=== PATIENT | female | born 1990 | race African-American/Black ===

== ENCOUNTER 2017-11-12 17:28 | Emergency (ER) | payer OTHER ==
[2017-11-12 17:54] VITALS: BP 160/100
[2017-11-12] MEDS ORDERED: CYCLOBENZAPRINE10 M1 PO (18:25)
[2017-11-12] MEDS ORDERED: NAPROSYN500 M1 PO (18:25)
--- NOTE | 2017-11-12 18:25 | ED NECK/BACK PAIN COMPLAINT ---
History of Present Illness General Chief Complaint: Low Back Pain/Injury Stated Complaint: LOWER BACK PAIN Source: patient Exam Limitations: no limitations Vital Signs & Intake/Output Vital Signs & Intake/Output Vital Signs Date Time Temp Pulse Resp B/P B/P Pulse O2 O2 Flow FiO2 Mean Ox Delivery Rate 11/12 1831 Room Air 11/12 1754 97.2 69 16 160/100 97 Room Air Allergies Coded Allergies: No Known Allergies (11/12/17) Reconcile Medications Cyclobenzaprine HCl 10 MG TABLET 1 TAB PO TID SPASMS Naproxen (Naprosyn) 500 MG TABLET 1 TAB PO BID PAIN Triage Note: PT TO ED WITH C/O LOWER BACK PAIN S/P CARRYING AN AIR CONDITIONER UNIT DOWN STAIRS TWO DAYS AGO. DENIES CHANGES IN BOWEL OR BLADDER. NO RADIATION OF PAIN. TAKING MOTRIN W/O RELIEF. Triage Nurses Notes Reviewed? yes Onset: Abrupt Duration: day(s): (FEW), constant, continues in ED Timing: recent history Quality/Severity: moderate : No Patient currently breastfeeds: No HPI: 26-year-old female comes into the emergency room for further evaluation of low back pain. Patient reports that a few days ago she was lifting an air conditioner. She felt a pull in her low back. She's been experiencing pain since then. She denies any radiation of pain down her legs. Denies any numbness or tingling. Pain is worse with any type of range of motion. She comes in for further evaluation. (Roddy Garcia) Past History Travel History Traveled to [place] past 21 day No Medical History Any Pertinent Medical History? none Surgical History Surgical History: none Psychosocial History What is your primary language Pashto Tobacco Use: Current Daily Use Daily Tobacco Use Amount/Type: => 5 Cigarettes daily Family History Hx Contributory? No (Roddy Garcia) Review of Systems Review of Systems Constitutional: Reports: no symptoms. Eyes: Reports: no symptoms. Ears, Nose, Throat, Mouth: Reports: no symptoms. Respiratory: Reports: no symptoms. Cardiovascular: Reports: no symptoms. Gastrointestinal/Abdominal: Reports: no symptoms. Musculoskeletal: Reports: see HPI. Skin: Reports: no symptoms. Neurological/Psychological: Reports: no symptoms. All Other Systems: Reviewed and Negative (Roddy Garcia) Physical Exam Physical Exam General Appearance: well developed/nourished, mild distress Head: atraumatic Eyes: Bilateral: normal appearance. Ears, Nose, Throat, Mouth: hearing grossly normal, moist mucous membrane Neck: normal inspection Respiratory: normal breath sounds, no respiratory distress Cardiovascular: regular rate/rhythm Gastrointestinal: soft, non-tender Back: normal inspection, decreased range of motion, PAIN WITH LATERAL ROTATION Extremities: normal range of motion Neurologic/Psych: awake, alert, oriented x 3, normal mood/affect Skin: intact, normal color, warm/dry Core Measures CVA/TIA Diagnosis: No (Roddy Garcia) Progress Differential Diagnosis: cauda equina syn, herniated disc, myofascial strain, pyelo/UTI, sciatica Plan of Care: 11/12/2017 7:09:17 PM Patient clinically looks well. In no apparent distress. Nontoxic appearing. Pain is worse with any type of range of motion. Pain consistent with muscular pain. Return if any other concerns. (Roddy Garcia) Departure Departure Disposition: HOME OR SELF CARE Condition: Stable Clinical Impression Primary Impression: Strain of muscle, fascia and tendon of lower back, initial encounter Referrals: Patient Has No Primary Care Dr (PCP/Family) Additional Instructions: Take Flexeril and Naprosyn as prescribed. Return if any concerns worsening symptoms. Please go over all results of today's visit with your primary care doctor. Contact your primary care doctor to let them know you were here in the emergency room. There may be nonspecific findings which may not be related to your visit today here in the emergency room but may require further evaluation and chronic monitoring by your primary care doctor. If you had a laceration today the chance of foreign body always remains. You should follow-up with your primary care doctor for recheck in 3-5 days for a wound check. If you had an x-ray done there is a chance that a fracture could have been missed on initial read and you should follow-up with your primary care doctor for repeat x-rays if symptoms persist. If your blood pressure was elevated here in the emergency room please have rechecked by [facility] primary care doctor within the next 48. If you were prescribed a narcotic here in the emergency room or any type of controlled substances you're not allowed to drive while taking this medication or operate any type of heavy machinery. Narcotics can make you feel lightheaded dizziness nausea and can cause constipation. You may need to greens picker a stool softener. Thank you for choosing [facility] emergency room. Please return to the emergency room immediately if you have any other concerns worsening of symptoms. Departure Forms: Customer Survey General Discharge Information Prescriptions: Current Visit Scripts Naproxen (Naprosyn) 1 TAB PO BID #30 TAB Cyclobenzaprine HCl 1 TAB PO TID #20 TAB (Roddy Garcia) PA/[employer] Co-Sign Statement Statement: ED Attending supervision documentation- [] I saw and evaluated the patient. I have also reviewed all the pertinent lab results and diagnostic results. I agree with the findings and the plan of care as documented in the PA's/[employer]'s documentation. [x] I have reviewed the ED Record and agree with the PA's/[employer]'s documentation. [] Additions or exceptions (if any) to the PAs/[employer]'s note and plan are summarized below: [] (Huber Holt DO)
== END 2017-11-12 18:32 ==
LOC: ERH 17:28
DX: S39.012A Strain of muscle, fascia and tendon of lower back, initial encounter (principal); X50.9XXA Other and unspecified overexertion or strenuous movements or postures, initial encounter; Y93.89 Activity, other specified